=== PATIENT | female | born 1970 | race Hispanic/Latino ===

== ENCOUNTER 2016-11-25 16:57 | Emergency (ER) | payer SELFPAY ==
[2016-11-25] MEDS ORDERED: XYLOCAINE 2%/EPI 1:100,000 INFILTRATI ONE (21:26)
--- NOTE | 2016-11-25 21:27 | Emergency Department Report ---
- General Chief complaint: Skin/Abscess/Foreign Body Stated complaint: POSS SPIDER BITE Time Seen by Provider: 11/25/16 21:25 Source: patient Mode of arrival: Ambulatory Limitations: No Limitations - History of Present Illness Initial comments: 46-year-old female past medical history obesity presents with complaint of left inner thigh abscess 3 days. Patient denies any fevers or chills, minimal pus drainage. No involvement of vagina patient states that it is in inner left thigh crease. complaint: abscess/boil Onset/Timin -: days(s) Location: LLE (left inner thigh creaSE) Quality: aching, sharp Consistency: constant Improves with: immobilization Worsens with: palpation - Related Data Previous Rx's Medication Instructions Recorded Last Taken Type Ibuprofen [Motrin] 800 mg PO Q8HR PRN #20 tablet 11/25/16 Unknown Rx Sulfamethoxazole/Trimethoprim 1 each PO BID #10 tablet 11/25/16 Unknown Rx [Bactrim DS TAB] Allergies Allergy/AdvReac Type Severity Reaction Status Date / Time No Known Allergies Allergy Unverified 11/25/16 17:33 Abscess Boil HPI - HPI Chief Complaint: Skin/Abscess/Foreign Body Stated Complaint: POSS SPIDER BITE Time Seen by Provider: 11/25/16 21:25 Home Medications: Previous Rx's Medication Instructions Recorded Last Taken Type Ibuprofen [Motrin] 800 mg PO Q8HR PRN #20 tablet 11/25/16 Unknown Rx Sulfamethoxazole/Trimethoprim 1 each PO BID #10 tablet 11/25/16 Unknown Rx [Bactrim DS TAB] Allergies/Adverse Reactions: Allergies Allergy/AdvReac Type Severity Reaction Status Date / Time No Known Allergies Allergy Unverified 11/25/16 17:33 ED Review of Systems ROS: Stated complaint: POSS SPIDER BITE Other details as noted in HPI Constitutional: denies: chills, fever Eyes: denies: eye pain, eye discharge, vision change ENT: denies: ear pain, throat pain Respiratory: denies: cough, shortness of breath, wheezing Cardiovascular: denies: chest pain, palpitations Endocrine: no symptoms reported Gastrointestinal: denies: abdominal pain, nausea, diarrhea Genitourinary: denies: urgency, dysuria, discharge Musculoskeletal: denies: back pain, joint swelling, arthralgia Skin: denies: rash, lesions Neurological: denies: headache, weakness, paresthesias Psychiatric: denies: anxiety, depression Hematological/Lymphatic: denies: easy bleeding, easy bruising ED Past Medical Hx - Past Medical History Previous Medical History?: No - Surgical History Additional Surgical History: 2 c-sections - Social History Smoking Status: Never Smoker Substance Use Type: None - Medications Home Medications: Home Medications Medication Instructions Recorded Confirmed Last Taken Type Ibuprofen [Motrin] 800 mg PO Q8HR PRN #20 tablet 11/25/16 Unknown Rx Sulfamethoxazole/Trimethoprim 1 each PO BID #10 tablet 11/25/16 Unknown Rx [Bactrim DS TAB] ED Physical Exam - General Limitations: No Limitations General appearance: alert, in no apparent distress - Head Head exam: Present: atraumatic, normocephalic - Eye Eye exam: Present: normal appearance, PERRL, EOMI - ENT ENT exam: Present: mucous membranes moist - Neck Neck exam: Present: normal inspection, full ROM - Respiratory Respiratory exam: Present: normal lung sounds bilaterally. Absent: respiratory distress - Cardiovascular Cardiovascular Exam: Present: regular rate, normal rhythm. Absent: systolic murmur, diastolic murmur, rubs, gallop - GI/Abdominal GI/Abdominal exam: Present: soft, normal bowel sounds - Extremities Exam Extremities exam: Present: normal inspection - Expanded Lower Extremity Exam Left Hip exam: Present: normal inspection, full ROM Upper Leg exam: Present: tenderness, swelling (SMALL ABSCESS ~2-3 CMS LEFT INNER THIGH CREASE) Lower Leg exam: Present: normal inspection, full ROM Ankle exam: Present: normal inspection, full ROM - Back Exam Back exam: Present: normal inspection - Neurological Exam Neurological exam: Present: alert, oriented X3 - Psychiatric Psychiatric exam: Present: normal affect, normal mood - Skin Skin exam: Present: warm, dry, intact, normal color. Absent: rash ED Course Vital Signs 11/25/16 17:29 Temperature 97.9 F Pulse Rate 82 Respiratory 16 Rate Blood Pressure 127/67 O2 Sat by Pulse 99 Oximetry - I & D Left Upper Thigh Type of Procedure: Simple Site: LEFT INNER GROIN/UPPER THIGH Blade Size: 11 I & D Procedure: betadine prep Progress: Abscess approximately 2-3 cm left inner thigh region. Small central abscess head. Minor surrounding erythema. Area infiltrated with lidocaine and epinephrine approximately 4 mL placed around area. 1 cm stab incision made, small amount of purulent drainage, wound culture sent. Small amount of purulent drainage expressed with deep squeezing of abscess site. Procedure tolerated well minimal bleeding. 3 inches of quarter-inch iodoform gauze placed into the wound. 4 x 4 gauze placed externally. ED Medical Decision Making - Medical Decision Making A/P: Left inner thigh abscess 1- abscess incised and drained, I advised patient to remove the iodoform gauze tomorrow morning and patient stated she understood my instructions 2- Bactrim twice a day 5 days 3- Motrin when necessary 4-I advised patient to return to the ED if symptoms worsen or if abscess re- accumulates or if she develops any fever or chills Critical care attestation.: If time is entered above; I have spent that time in minutes in the direct care of this critically ill patient, excluding procedure time. ED Disposition Clinical Impression: Abscess of groin, left Disposition: DISCHARGED TO HOME OR SELFCARE Is pt being admited?: No Does the pt Need Aspirin: No Condition: Stable Instructions: Abscess (ED), Incision and Drainage (ED) Prescriptions: Ibuprofen [Motrin] 800 mg PO Q8HR PRN #20 tablet PRN Reason: Pain Sulfamethoxazole/Trimethoprim [Bactrim DS TAB] 1 each PO BID #10 tablet Referrals: [facility] [Provider Group] - 3-5 Days NATALIE ROCHA MD [Staff Physician] - 3-5 Days Time of Disposition: 22:17
[2016-11-25 22:33] VITALS: BP 128/70
== END 2016-11-25 22:34 | disposition home or self-care (01) ==
LOC: ED 16:57
DX: L02.416 Cutaneous abscess of left lower limb (principal)
CPT/HCPCS: 87076; 87116; 87186

== ENCOUNTER 2017-01-08 12:32 | Emergency (ER) | payer SELFPAY ==
--- NOTE | 2017-01-08 14:21 | XRay Report ---
Left ankle 2 views: History: Fall. Findings: No fracture or dislocation. No articular abnormality talotibial joint. Spur anteroinferior and posterior superior aspect of posterior calcaneum. Impression: No evidence of acute fracture.
[2017-01-08] MEDS ORDERED: TORADOL IM ONE (14:39)
--- NOTE | 2017-01-08 14:39 | Emergency Department Report ---
HPI - General Chief Complaint: Extremity Injury, Lower Time Seen by Provider: 01/08/17 14:32 - HPI HPI: This is a 46-year-old female presents to the emergency department with a complaint of left ankle pain that occurred after she tripped going down some stairs last night. She has been able to bear weight but it is extremely painful to her and she has to walk on her tiptoes. She tried taking some Tylenol for her symptoms got much relief. She denies any past medical history. There is some swelling she denies any skin color change or rash or laceration. She does not have a primary care physician. ED Past Medical Hx - Past Medical History Previous Medical History?: No - Surgical History Past Surgical History?: Yes Additional Surgical History: 2 c-sections - Social History Smoking Status: Never Smoker Substance Use Type: None - Medications Home Medications: Home Medications Medication Instructions Recorded Confirmed Last Taken Type Ibuprofen [Motrin] 800 mg PO Q8HR PRN #20 tablet 11/25/16 Unknown Rx Sulfamethoxazole/Trimethoprim 1 each PO BID #10 tablet 11/25/16 Unknown Rx [Bactrim DS TAB] HYDROcodone/APAP 5-325 [[place] 1 each PO Q6HR PRN #10 tablet 01/08/17 Unknown Rx 5/325] ED Review of Systems ROS: Stated complaint: LT FOOT INJURY/FALL Other details as noted in HPI Comment: All other systems reviewed and negative Constitutional: denies: chills, fever Eyes: denies: eye pain, eye discharge, vision change ENT: denies: ear pain, throat pain Respiratory: denies: cough, shortness of breath, wheezing Cardiovascular: edema. denies: chest pain, palpitations Endocrine: no symptoms reported Gastrointestinal: denies: abdominal pain, nausea, diarrhea Genitourinary: denies: urgency, dysuria, discharge Musculoskeletal: joint swelling, arthralgia. denies: back pain Skin: denies: rash, lesions Neurological: denies: headache, weakness, paresthesias Physical Exam - Physical Exam Vital Signs: Vital Signs 01/08/17 13:10 Temperature 98.2 F Pulse Rate 81 Respiratory 18 Rate Blood Pressure 120/74 O2 Sat by Pulse 100 Oximetry Physical Exam: GENERAL: The patient is well-developed well-nourished. HEENT: Normocephalic. Atraumatic. Extraocular motions are intact. Patient has moist mucous membranes. NECK: Supple. Trachea is midline. CHEST/LUNGS: Clear to auscultation. There is no respiratory distress noted. HEART/CARDIOVASCULAR: Regular. There is no tachycardia. There is no gallop rub or murmur. ABDOMEN: Abdomen is soft, nontender. Patient has normal bowel sounds. There is no abdominal distention. SKIN: There is some nonpitting swelling to the left lateral ankle/malleolus. NEURO: The patient is awake, alert, and oriented. The patient is cooperative. The patient has no focal neurologic deficits. The patient has normal speech. MUSCULOSKELETAL: Tenderness palpation to the circumferential left lateral ankle. Pedal pulses +2 over 4 bilaterally. There is no limitation range of motion. ED Course Vital Signs 01/08/17 13:10 Temperature 98.2 F Pulse Rate 81 Respiratory 18 Rate Blood Pressure 120/74 O2 Sat by Pulse 100 Oximetry ED Medical Decision Making - Radiology Data Radiology results: image reviewed interpreted by me: X-ray of the left ankle does not show any fracture, dislocation or any acute process. - Medical Decision Making 46-year-old female presents to the emergency department with some left ankle pain and swelling after tripping down some stairs last night. She has pain with ambulation and bearing weight. No obvious deformity. X-ray does not show any fracture, dislocation or any acute process. She was given a Toradol shot here. She'll be placed in a short posterior splint and placed on crutches for nonweightbearing. She will be given a referral for orthopedist. She will return to the ER for any worsening or symptoms or any acute distress. - Differential Diagnosis fracture, dislocation, contusion, sprain Critical Care Time: No Critical care attestation.: If time is entered above; I have spent that time in minutes in the direct care of this critically ill patient, excluding procedure time. ED Disposition Clinical Impression: Left ankle pain Qualifiers: Chronicity: acute Qualified Code(s): M25.572 - Pain in left ankle and joints of left foot Disposition: DC-01 TO HOME OR SELFCARE Is pt being admited?: No Condition: Stable Instructions: Ankle Sprain (ED), Arthralgia (ED) Additional Instructions: ollow-up with a primary care physician in the next few days. I've given your referral for a local orthopedist, Dr. Calixto, to follow up regarding your ankle pain. You can use ice multiple times per day but not directly against the skin. It is also recommended that you use rest, elevation and compression. Return to the emergency department with any worsening of her symptoms or any acute distress. Prescriptions: HYDROcodone/APAP 5-325 [[place] 5/325] 1 each PO Q6HR PRN #10 tablet PRN Reason: Pain Referrals: PRIMARY CAREMD [Primary Care Provider] - 3-5 Days JAVED CALIXTO MD [Staff Physician] - 3-5 Days Time of Disposition: 14:41
[2017-01-08 15:15] VITALS: BP 128/80
== END 2017-01-08 15:14 | disposition home or self-care (01) ==
LOC: ED 12:32
DX: M25.572 Pain in left ankle and joints of left foot (principal); W10.9XXA Fall (on) (from) unspecified stairs and steps, initial encounter; Y93.89 Activity, other specified; Y99.8 Other external cause status; Y92.89 Other specified places as the place of occurrence of the external cause
CPT/HCPCS: 29515; 73600; 96372; 99283; J1885